=== PATIENT | female | born 1970 | race Hispanic/Latino ===

== ENCOUNTER → 2020-07-17 | Outpatient (CLI) | payer BC | END | disposition home or self-care (01) | LOC: OIH 15:18 | PROVIDERS: ATTEND Internal Medicine | DX: M19.042 Primary osteoarthritis, left hand (principal); M19.072 Primary osteoarthritis, left ankle and foot | CPT/HCPCS: 73630 ==

== ENCOUNTER 2021-03-26 07:37 | Inpatient (IN) | payer BC ==
[~2021-03-26] VITALS: Ht 162.6 cm; Wt 132.1 kg
[2021-03-26 08:17] LABS: BASOPHILS % (AUTO) 0.6 % (0.0-5.0); HEMATOCRIT 41.8 % (36-48); LYMPHOCYTES % (AUTO) 18.3 % (21.0-51.0); MEAN CORPUSCULAR HEMOGLOBIN 30.9 pg (27.0-33.0); MEAN CORPUSCULAR HGB CONC 32.3 g/dL (32.0-36.0); MEAN CORPUSCULAR VOLUME 95.7 fL (79-99); MONOCYTES % (AUTO) 7.4 % (3.0-13.0); NEUTROPHILS % (AUTO) 72.1 % (40.0-77.0); PLATELET COUNT (AUTO) 151 K/uL (130-400); RED BLOOD CELL COUNT(AUTO) 4.37 MIL/uL (4.00-5.50); RED CELL DISTRIBUTION WIDTH 13.2 % (11.0-15.5); WHITE BLOOD COUNT (AUTO) 8.1 K/uL (4.8-10.8)
[2021-03-26 08:29] LABS: CREATININE 1.2 mg/dL (0.5-1.5); POTASSIUM 3.9 mmol/L (3.5-5.1)
[2021-03-26 08:30] LABS: ALBUMIN 3.2 g/dL (3.5-5.0); BILIRUBIN,TOTAL 0.4 mg/dL (0.2-1.0); TOTAL PROTEIN, SERUM 6.7 g/dL (6.0-8.3)
[2021-03-26] MEDS ORDERED: IOHEXOL-350 75 ML VIAL IV ONE (09:03)
[2021-03-26] MEDS ORDERED: 0.9%NACL 1000ML 1,000 ML IV ONE ×2 (09:30→10:45)
[2021-03-26] MEDS ORDERED: HYDRALAZINE 20MG/ML VIAL IV PRN (11:30)
[2021-03-26] MEDS ORDERED: ACETAMINOPHEN 325 MG TAB PO PRN (11:30)
[2021-03-26] MEDS: INSULIN HUMULIN R 100 UNIT/ML 3ML SQ SCH ×5 (11:30→21:46)
[2021-03-26] MEDS: HEPARIN 25,000 UNITS/250ML D5W 250 ML IV SCH (11:33)
[2021-03-26 11:49] LABS: ABG BASE EXCESS -1.1 mmol/L (-2.0-3.0); ABG HCO3 22.6 mmol/L (21.0-28.0); ABG OXYGEN SATURATION 91.3 % (95.0-99.0); ABG PCO2 35 mmHg (32-45)
[2021-03-26 11:53] LABS: INR 1.02 (0.85-1.15); PROTHROMBIN TIME 11.1 SEC (9.6-11.6)
[2021-03-26 11:54] LABS: PARTIAL THROMBOPLASTIN TIME 25.6 SEC (26.3-35.5)
[2021-03-26 19:31] LABS: APPEARANCE,URINE Clear (CLEAR); BILIRUBIN,URINE Negative (NEGATIVE); COLOR,URINE Yellow (YELLOW); GLUCOSE, URINE (UA) TRACE mg/dL (NEGATIVE); KETONES,URINE Negative (NEGATIVE); LEUKOCYTE ESTERASE ,URINE Negative (NEGATIVE); NITRATE,URINE Negative (NEGATIVE); OCCULT BLOOD,URINE Negative (NEGATIVE); PROTEIN,URINE Negative (NEGATIVE); UROBILINOGEN,URINE 0.2 mg/dL (0.2-1.0)
[2021-03-26 19:41] LABS: BACTERIA,URINE Few /HPF (None Seen); MUCUS,URINE Few LPF (None Seen); SQUAMOUS EPITHELIAL CELL,UR Moderate /HPF (0-2)
[2021-03-26 19:47] LABS: INR 1.07 (0.85-1.15); PROTHROMBIN TIME 11.6 SEC (9.6-11.6)
[2021-03-26 19:57] LABS: PARTIAL THROMBOPLASTIN TIME 89.6 SEC (26.3-35.5)
[2021-03-26] MEDS: FAMOTIDINE 20MG VIAL IV SCH (21:44)
[2021-03-26] MEDS: INSULIN GLARGINE 100 UNITS/ML 10 ML VIAL SQ SCH (21:47)
[2021-03-26] MEDS: ACETAMINOPHEN 325 MG TAB PO PRN (22:55)
[2021-03-27 01:56] LABS: INR 1.05 (0.85-1.15); PROTHROMBIN TIME 11.4 SEC (9.6-11.6)
[2021-03-27 01:57] LABS: PARTIAL THROMBOPLASTIN TIME 61.8 SEC (26.3-35.5)
[2021-03-27 03:57] LABS: CHOLESTEROL 200 mg/dL (<200); HDL CHOLESTEROL 57 mg/dL (35-85); LDL DIRECT 111 mg/dL (0-99); TRIGLYCERIDES 191 mg/dL (30-200)
[2021-03-27 04:10] VITALS: BP 162/98
[2021-03-27] MEDS ORDERED: MELO-108 PO (04:24)
[2021-03-27] MEDS ORDERED: SEMA1PEN3 SQ (04:24)
[2021-03-27] MEDS ORDERED: OMEG-12 PO (04:24)
[2021-03-27] MEDS ORDERED: METH2.5T6 PO (04:24)
[2021-03-27] MEDS ORDERED: METF-444 PO (04:24)
[2021-03-27] MEDS ORDERED: FOLIC ACID PO (04:24)
[2021-03-27] MEDS ORDERED: ACET1TAB25 PO (04:24)
[2021-03-27] MEDS ORDERED: MONT-39 PO (04:24)
[2021-03-27] MEDS ORDERED: VITAMIN D3 PO (04:24)
[2021-03-27] MEDS ORDERED: ADAL40PE5 SQ (04:24)
[2021-03-27] MEDS ORDERED: LEVO25TA54 PO (04:24)
[2021-03-27] MEDS ORDERED: LEVOTHYROXINE 25 MCG TABLET ONE (06:45)
[2021-03-27] MEDS: LEVOTHYROXINE 25 MCG TABLET PO SCH (06:46)
[2021-03-27] MEDS: INSULIN HUMULIN R 100 UNIT/ML 3ML SQ SCH ×7 (06:47→20:27)
[2021-03-27 07:53] VITALS: BP 127/80
[2021-03-27 08:12] LABS: INR 1.04 (0.85-1.15); PROTHROMBIN TIME 11.3 SEC (9.6-11.6)
[2021-03-27] MEDS: FISH OIL 1000 MG/CAP PO SCH (08:43)
[2021-03-27] MEDS: MONTELUKAST SODIUM 10 MG TAB PO SCH (08:43)
[2021-03-27] MEDS: METFORMIN HCL 500 MG TABLET PO SCH ×2 (08:43→17:46)
[2021-03-27] MEDS: FOLIC ACID 1 MG TABLET PO SCH (08:43)
[2021-03-27] MEDS: MELOXICAM 7.5 MG TABLET PO SCH (08:44)
[2021-03-27] MEDS: METHOTREXATE SODIUM 2.5 MG TABLET PO SCH (08:44)
[2021-03-27] MEDS: FAMOTIDINE 20MG VIAL IV SCH ×2 (08:44→20:38)
[2021-03-27] MEDS: ACETAMINOPHEN 325 MG TAB PO PRN ×2 (08:59→23:17)
[2021-03-27] MEDS: **HM** OZEMPIC 0.25MG SQ SCH (09:00)
[2021-03-27] MEDS ORDERED: HUMIRA 40 MG SQ SCH (09:00)
[2021-03-27] MEDS: **HM** VIT D3 5000 UNITS PO SCH ×2 (09:00→20:39)
[2021-03-27 10:46] VITALS: BP 118/91
[2021-03-27] MEDS: HEPARIN 25,000 UNITS/250ML D5W 250 ML IV SCH (12:39)
[2021-03-27 13:26] LABS: INR 1.02 (0.85-1.15); PROTHROMBIN TIME 11.1 SEC (9.6-11.6)
[2021-03-27 13:27] LABS: PARTIAL THROMBOPLASTIN TIME 35.6 SEC (26.3-35.5)
[2021-03-27 15:39] VITALS: BP 119/86
[2021-03-27 19:19] VITALS: BP 148/109
[2021-03-27 20:13] LABS: PROTHROMBIN TIME 10.9 SEC (9.6-11.6)
[2021-03-27 20:14] LABS: PARTIAL THROMBOPLASTIN TIME 52.1 SEC (26.3-35.5)
[2021-03-27] MEDS: INSULIN GLARGINE 100 UNITS/ML 10 ML VIAL SQ SCH (20:39)
[2021-03-27 23:34] VITALS: BP 153/99
[2021-03-28 02:05] LABS: INR 1.03 (0.85-1.15); PROTHROMBIN TIME 11.2 SEC (9.6-11.6)
[2021-03-28 02:06] LABS: PARTIAL THROMBOPLASTIN TIME 52.3 SEC (26.3-35.5)
[2021-03-28] MEDS: HEPARIN 25,000 UNITS/250ML D5W 250 ML IV SCH (02:44)
[2021-03-28 04:27] VITALS: BP 160/99
[2021-03-28] MEDS: INSULIN HUMULIN R 100 UNIT/ML 3ML SQ SCH ×7 (05:42→20:16)
[2021-03-28] MEDS: LEVOTHYROXINE 25 MCG TABLET PO SCH (06:25)
[2021-03-28] MEDS: ACETAMINOPHEN 325 MG TAB PO PRN ×2 (06:29→20:10)
[2021-03-28 07:27] VITALS: BP 145/78
[2021-03-28] MEDS: **HM** VIT D3 5000 UNITS PO SCH ×2 (09:00→20:10)
[2021-03-28 10:42] VITALS: BP 138/86
[2021-03-28] MEDS ORDERED: ACETAMINOPHEN WITH CODEINE 1 TAB TAB PO PRN (11:00)
[2021-03-28] MEDS: FOLIC ACID 1 MG TABLET PO SCH (11:09)
[2021-03-28] MEDS: METFORMIN HCL 500 MG TABLET PO SCH ×2 (11:09→16:52)
[2021-03-28] MEDS: FISH OIL 1000 MG/CAP PO SCH (11:09)
[2021-03-28] MEDS: MONTELUKAST SODIUM 10 MG TAB PO SCH (11:09)
[2021-03-28] MEDS: FAMOTIDINE 20MG VIAL IV SCH ×2 (11:09→20:09)
[2021-03-28] MEDS: MELOXICAM 7.5 MG TABLET PO SCH (11:11)
[2021-03-28 11:19] LABS: BASOPHILS % (AUTO) 0.5 % (0.0-5.0); EOSINOPHILS % (AUTO) 2.5 % (0.0-8.0); HEMATOCRIT 38.3 % (36-48); MEAN CORPUSCULAR HEMOGLOBIN 30.7 pg (27.0-33.0); MEAN CORPUSCULAR HGB CONC 32.9 g/dL (32.0-36.0); MEAN CORPUSCULAR VOLUME 93.4 fL (79-99); MONOCYTES % (AUTO) 9.8 % (3.0-13.0); NEUTROPHILS % (AUTO) 55.9 % (40.0-77.0); PLATELET COUNT (AUTO) 157 K/uL (130-400); POTASSIUM 3.4 mmol/L (3.5-5.1); RED CELL DISTRIBUTION WIDTH 13.2 % (11.0-15.5); WHITE BLOOD COUNT (AUTO) 6.3 K/uL (4.8-10.8)
[2021-03-28] MEDS ORDERED: BISACODYL 5 MG TABLET.DR PO PRN (11:30)
[2021-03-28] MEDS: KCL 20 MEQ ERTAB PO SCH (12:30)
[2021-03-28 16:44] VITALS: BP 143/69
[2021-03-28] MEDS: HYDROCODONE/ACETAMINOPHEN 5/325 MG TAB PO PRN ×2 (16:52→22:15)
[2021-03-28 20:04] VITALS: BP 151/80
[2021-03-28] MEDS: INSULIN GLARGINE 100 UNITS/ML 10 ML VIAL SQ SCH (20:18)
[2021-03-28 23:40] VITALS: BP 151/84
[2021-03-29 02:20] LABS: HEMATOCRIT 44.2 % (36-48); MEAN CORPUSCULAR HEMOGLOBIN 30.9 pg (27.0-33.0); MEAN CORPUSCULAR HGB CONC 32.8 g/dL (32.0-36.0); MEAN CORPUSCULAR VOLUME 94.2 fL (79-99); RED BLOOD CELL COUNT(AUTO) 4.69 MIL/uL (4.00-5.50); RED CELL DISTRIBUTION WIDTH 13.1 % (11.0-15.5); WHITE BLOOD COUNT (AUTO) 5.6 K/uL (4.8-10.8)
[2021-03-29] MEDS ORDERED: MORPHINE 2 MG SYG ONE (02:30)
[2021-03-29 02:31] LABS: INR 1.02 (0.85-1.15); PROTHROMBIN TIME 11.1 SEC (9.6-11.6)
[2021-03-29 02:32] LABS: PARTIAL THROMBOPLASTIN TIME 39.4 SEC (26.3-35.5)
[2021-03-29 02:40] LABS: CREATININE 0.9 mg/dL (0.5-1.5); POTASSIUM 3.5 mmol/L (3.5-5.1)
[2021-03-29] MEDS: ONDANSETRON 4MG INJ IV PRN ×2 (02:41→20:58)
[2021-03-29] MEDS: HEPARIN 25,000 UNITS/250ML D5W 250 ML IV SCH ×2 (02:59→10:31)
[2021-03-29] MEDS ORDERED: MORPHINE 2 MG SYG IVP ONE (03:00)
[2021-03-29] MEDS: HYDROCODONE/ACETAMINOPHEN 5/325 MG TAB PO PRN ×4 (03:46→18:40)
[2021-03-29 03:49] VITALS: BP 146/84
[2021-03-29] MEDS: LEVOTHYROXINE 25 MCG TABLET PO SCH (06:00)
[2021-03-29] MEDS: INSULIN HUMULIN R 100 UNIT/ML 3ML SQ SCH ×7 (06:07→20:44)
[2021-03-29] MEDS: **HM** VIT D3 5000 UNITS PO SCH ×2 (08:05→21:00)
[2021-03-29] MEDS: KCL 20 MEQ ERTAB PO SCH (08:05)
[2021-03-29 08:07] VITALS: BP 132/56
[2021-03-29] MEDS: FISH OIL 1000 MG/CAP PO SCH (10:21)
[2021-03-29] MEDS: FOLIC ACID 1 MG TABLET PO SCH (10:21)
[2021-03-29] MEDS: METFORMIN HCL 500 MG TABLET PO SCH ×2 (10:21→18:40)
[2021-03-29] MEDS: FAMOTIDINE 20MG VIAL IV SCH ×2 (10:21→20:45)
[2021-03-29] MEDS: MONTELUKAST SODIUM 10 MG TAB PO SCH (10:21)
[2021-03-29] MEDS: MELOXICAM 7.5 MG TABLET PO SCH (10:22)
[2021-03-29] MEDS ORDERED: MORPHINE 2 MG SYG IVP PRN (10:30)
[2021-03-29 10:47] VITALS: BP 138/91
[2021-03-29] MEDS ORDERED: LIDOCAINE 5% TOPICAL PATCH TP SCH (13:00)
[2021-03-29 16:08] VITALS: BP 152/83
[2021-03-29 19:20] VITALS: BP 129/95
[2021-03-29] MEDS: INSULIN GLARGINE 100 UNITS/ML 10 ML VIAL SQ SCH (20:43)
[2021-03-29 23:42] VITALS: BP 159/97
[2021-03-30] MEDS: HYDROCODONE/ACETAMINOPHEN 5/325 MG TAB PO PRN ×4 (01:19→19:28)
[2021-03-30] MEDS: HEPARIN 25,000 UNITS/250ML D5W 250 ML IV SCH (03:18)
[2021-03-30 03:24] VITALS: BP 144/80
[2021-03-30 06:22] LABS: BASOPHILS % (AUTO) 0.3 % (0.0-5.0); EOSINOPHILS % (AUTO) 2.6 % (0.0-8.0); HEMATOCRIT 38.5 % (36-48); LYMPHOCYTES % (AUTO) 31.7 % (21.0-51.0); MEAN CORPUSCULAR HEMOGLOBIN 30.3 pg (27.0-33.0); MEAN CORPUSCULAR HGB CONC 31.7 g/dL (32.0-36.0); MEAN CORPUSCULAR VOLUME 95.8 fL (79-99); MONOCYTES % (AUTO) 10.6 % (3.0-13.0); NEUTROPHILS % (AUTO) 54.5 % (40.0-77.0); PLATELET COUNT (AUTO) 177 K/uL (130-400); RED BLOOD CELL COUNT(AUTO) 4.02 MIL/uL (4.00-5.50); RED CELL DISTRIBUTION WIDTH 12.6 % (11.0-15.5); WHITE BLOOD COUNT (AUTO) 5.8 K/uL (4.8-10.8)
[2021-03-30 06:38] LABS: CREATININE 0.9 mg/dL (0.5-1.5); POTASSIUM 3.4 mmol/L (3.5-5.1)
[2021-03-30] MEDS: INSULIN HUMULIN R 100 UNIT/ML 3ML SQ SCH ×7 (07:03→21:00)
[2021-03-30] MEDS: LEVOTHYROXINE 25 MCG TABLET PO SCH (07:04)
[2021-03-30] MEDS: METFORMIN HCL 500 MG TABLET PO SCH ×2 (07:05→17:00)
[2021-03-30] MEDS: MELOXICAM 7.5 MG TABLET PO SCH (07:07)
[2021-03-30] MEDS: FOLIC ACID 1 MG TABLET PO SCH (07:07)
[2021-03-30] MEDS: FISH OIL 1000 MG/CAP PO SCH (07:07)
[2021-03-30] MEDS: MONTELUKAST SODIUM 10 MG TAB PO SCH (07:07)
[2021-03-30] MEDS: KCL 20 MEQ ERTAB PO SCH ×2 (07:39→13:07)
[2021-03-30] MEDS: **HM** VIT D3 5000 UNITS PO SCH ×2 (07:39→21:00)
[2021-03-30 07:55] VITALS: BP 140/78
[2021-03-30] MEDS: FAMOTIDINE 20MG VIAL IV SCH ×2 (08:45→21:28)
[2021-03-30 10:58] VITALS: BP 153/83
[2021-03-30 16:35] VITALS: BP 153/73
[2021-03-30] MEDS ORDERED: HEPARIN 5,000 UNIT VIAL ONE (19:25)
[2021-03-30 20:22] VITALS: BP 111/69
[2021-03-30] MEDS: INSULIN GLARGINE 100 UNITS/ML 10 ML VIAL SQ SCH (21:32)
[2021-03-30 23:59] VITALS: BP 144/71
[2021-03-31 00:44] LABS: INR 1.06 (0.85-1.15); PROTHROMBIN TIME 11.5 SEC (9.6-11.6)
[2021-03-31 00:46] LABS: PARTIAL THROMBOPLASTIN TIME 77.4 SEC (26.3-35.5)
[2021-03-31] MEDS: HYDROCODONE/ACETAMINOPHEN 5/325 MG TAB PO PRN ×4 (01:13→17:46)
[2021-03-31 03:58] VITALS: BP 133/71
[2021-03-31 07:01] LABS: CREATININE 1.1 mg/dL (0.5-1.5); POTASSIUM 3.4 mmol/L (3.5-5.1)
[2021-03-31 07:04] LABS: INR 1.05 (0.85-1.15); PROTHROMBIN TIME 11.4 SEC (9.6-11.6)
[2021-03-31 07:05] LABS: PARTIAL THROMBOPLASTIN TIME 58.2 SEC (26.3-35.5)
[2021-03-31 07:30] VITALS: BP 140/69
[2021-03-31] MEDS: INSULIN HUMULIN R 100 UNIT/ML 3ML SQ SCH ×7 (07:30→21:00)
[2021-03-31 08:13] LABS: MAGNESIUM 1.6 mg/dL (1.80-2.40)
[2021-03-31] MEDS: KCL 20 MEQ ERTAB PO SCH ×2 (08:19)
[2021-03-31] MEDS: MELOXICAM 7.5 MG TABLET PO SCH (09:05)
[2021-03-31] MEDS: METFORMIN HCL 500 MG TABLET PO SCH ×2 (09:05→17:44)
[2021-03-31] MEDS: LEVOTHYROXINE 25 MCG TABLET PO SCH (09:05)
[2021-03-31] MEDS: FAMOTIDINE 20MG VIAL IV SCH ×2 (09:05→22:38)
[2021-03-31] MEDS: FOLIC ACID 1 MG TABLET PO SCH (09:05)
[2021-03-31] MEDS: FISH OIL 1000 MG/CAP PO SCH (09:05)
[2021-03-31] MEDS: MONTELUKAST SODIUM 10 MG TAB PO SCH (09:06)
[2021-03-31] MEDS: **HM** VIT D3 5000 UNITS PO SCH ×2 (09:06→21:00)
[2021-03-31 11:00] VITALS: BP 132/69
[2021-03-31] MEDS: HEPARIN 25,000 UNITS/250ML D5W 250 ML IV SCH ×2 (11:01→22:53)
[2021-03-31] MEDS ORDERED: POTASSIUM CHLORIDE 20MEQ/100ML 100 ML IV PRN (13:00)
[2021-03-31] MEDS ORDERED: POTASSIUM CHLORIDE 10% ELIXIR 20 MEQ/15 ML UDCUP PO PRN (13:00)
[2021-03-31] MEDS ORDERED: LIDOCAINE HCL-MPF 1% 2ML VIAL IV PRN (13:00)
[2021-03-31] MEDS ORDERED: MAGNESIUM 2GM PREMIX 50ML 50 ML IV PRN (13:00)
[2021-03-31 13:09] LABS: INR 1.05 (0.85-1.15); PROTHROMBIN TIME 11.4 SEC (9.6-11.6)
[2021-03-31 13:10] LABS: PARTIAL THROMBOPLASTIN TIME 47.8 SEC (26.3-35.5)
[2021-03-31 16:00] VITALS: BP 142/84
[2021-03-31] MEDS: KCL 20 MEQ ERTAB PO PRN ×2 (18:26→22:40)
[2021-03-31 20:19] VITALS: BP 159/71
[2021-03-31] MEDS: INSULIN GLARGINE 100 UNITS/ML 10 ML VIAL SQ SCH (22:42)
[2021-04-01] VITALS (7 sets, daily range): BP systolic 121–140; BP diastolic 58–85
[2021-04-01] MEDS: ONDANSETRON 4MG INJ IV PRN (02:53)
[2021-04-01 03:57] LABS: BASOPHILS % (AUTO) 0.6 % (0.0-5.0); HEMATOCRIT 38.5 % (36-48); LYMPHOCYTES % (AUTO) 32.5 % (21.0-51.0); MEAN CORPUSCULAR HEMOGLOBIN 30.3 pg (27.0-33.0); MEAN CORPUSCULAR HGB CONC 31.7 g/dL (32.0-36.0); MEAN CORPUSCULAR VOLUME 95.8 fL (79-99); MONOCYTES % (AUTO) 9.6 % (3.0-13.0); NEUTROPHILS % (AUTO) 52.9 % (40.0-77.0); PLATELET COUNT (AUTO) 225 K/uL (130-400); RED BLOOD CELL COUNT(AUTO) 4.02 MIL/uL (4.00-5.50); RED CELL DISTRIBUTION WIDTH 12.7 % (11.0-15.5)
[2021-04-01 04:14] LABS: ALBUMIN 2.7 g/dL (3.5-5.0); BILIRUBIN,TOTAL 0.5 mg/dL (0.2-1.0); POTASSIUM 3.7 mmol/L (3.5-5.1); TOTAL PROTEIN, SERUM 5.9 g/dL (6.0-8.3)
[2021-04-01] MEDS: INSULIN HUMULIN R 100 UNIT/ML 3ML SQ SCH ×7 (06:26→21:00)
[2021-04-01] MEDS: LEVOTHYROXINE 25 MCG TABLET PO SCH (06:32)
[2021-04-01] MEDS: HYDROCODONE/ACETAMINOPHEN 5/325 MG TAB PO PRN ×3 (07:20→22:24)
[2021-04-01] MEDS: METFORMIN HCL 500 MG TABLET PO SCH ×2 (08:00→16:18)
[2021-04-01] MEDS: KCL 20 MEQ ERTAB PO SCH ×2 (08:01→11:30)
[2021-04-01] MEDS: MELOXICAM 7.5 MG TABLET PO SCH (09:00)
[2021-04-01] MEDS: FAMOTIDINE 20MG VIAL IV SCH ×2 (09:00→22:19)
[2021-04-01] MEDS: **HM** VIT D3 5000 UNITS PO SCH ×2 (09:00→21:00)
[2021-04-01] MEDS: FOLIC ACID 1 MG TABLET PO SCH (09:00)
[2021-04-01] MEDS: MONTELUKAST SODIUM 10 MG TAB PO SCH (09:00)
[2021-04-01] MEDS: FISH OIL 1000 MG/CAP PO SCH (09:00)
[2021-04-01] MEDS ORDERED: ENOXAPARIN SODIUM 1 MG/KG SQ SCH (09:00)
[2021-04-01] MEDS: ENOXAPARIN SODIUM 30 MG/0.3 ML SQ SCH ×2 (09:05→22:21)
[2021-04-01] MEDS: ENOXAPARIN SODIUM 100 MG/1 ML SQ SCH ×2 (09:06→22:20)
[2021-04-01] MEDS: INSULIN GLARGINE 100 UNITS/ML 10 ML VIAL SQ SCH (22:22)
[2021-04-02] MEDS: HYDROCODONE/ACETAMINOPHEN 5/325 MG TAB PO PRN (03:25)
[2021-04-02 04:30] VITALS: BP 149/79
[2021-04-02] MEDS: INSULIN HUMULIN R 100 UNIT/ML 3ML SQ SCH ×7 (05:46→20:09)
[2021-04-02 07:30] VITALS: BP 141/68
[2021-04-02] MEDS: LEVOTHYROXINE 25 MCG TABLET PO SCH (07:30)
[2021-04-02] MEDS: KCL 20 MEQ ERTAB PO SCH ×2 (07:58→09:10)
[2021-04-02] MEDS: METFORMIN HCL 500 MG TABLET PO SCH ×2 (08:00→17:25)
[2021-04-02] MEDS: FOLIC ACID 1 MG TABLET PO SCH (09:00)
[2021-04-02] MEDS: **HM** VIT D3 5000 UNITS PO SCH ×2 (09:00→20:09)
[2021-04-02] MEDS: FAMOTIDINE 20MG VIAL IV SCH ×2 (09:00→20:09)
[2021-04-02] MEDS: MELOXICAM 7.5 MG TABLET PO SCH (09:00)
[2021-04-02] MEDS: FISH OIL 1000 MG/CAP PO SCH (09:00)
[2021-04-02] MEDS: MONTELUKAST SODIUM 10 MG TAB PO SCH (09:12)
[2021-04-02 10:59] VITALS: BP 139/80
[2021-04-02] MEDS: ACETAMINOPHEN 325 MG TAB PO PRN (12:41)
[2021-04-02 15:48] VITALS: BP 144/80
[2021-04-02 20:05] VITALS: BP 147/85
[2021-04-02] MEDS: INSULIN GLARGINE 100 UNITS/ML 10 ML VIAL SQ SCH (20:17)
[2021-04-02] MEDS ORDERED: APIXABAN 5 MG TABLET PO SCH ×2 (21:00)
[2021-04-02] MEDS: ACETAMINOPHEN WITH CODEINE 1 TAB TAB PO PRN (21:16)
[2021-04-02 23:32] VITALS: BP 155/74
[2021-04-03] VITALS (9 sets, daily range): BP systolic 77–145; BP diastolic 53–93
[2021-04-03] MEDS ORDERED: DiphenhydrAMINE HCL 50 MG/ML VIAL IV ONE (00:15)
[2021-04-03] MEDS ORDERED: DiphenhydrAMINE HCL 50 MG/ML VIAL ONE (00:18)
[2021-04-03] MEDS: LEVOTHYROXINE 25 MCG TABLET PO SCH (06:13)
[2021-04-03] MEDS: INSULIN HUMULIN R 100 UNIT/ML 3ML SQ SCH ×7 (06:14→20:32)
[2021-04-03 07:12] LABS: BASOPHILS % (AUTO) 0.6 % (0.0-5.0); EOSINOPHILS % (AUTO) 3.9 % (0.0-8.0); HEMATOCRIT 41.3 % (36-48); LYMPHOCYTES % (AUTO) 29.2 % (21.0-51.0); MEAN CORPUSCULAR HEMOGLOBIN 30.2 pg (27.0-33.0); MEAN CORPUSCULAR HGB CONC 31.7 g/dL (32.0-36.0); MEAN CORPUSCULAR VOLUME 95.2 fL (79-99); MONOCYTES % (AUTO) 10.2 % (3.0-13.0); NEUTROPHILS % (AUTO) 55.5 % (40.0-77.0); PLATELET COUNT (AUTO) 296 K/uL (130-400); RED BLOOD CELL COUNT(AUTO) 4.34 MIL/uL (4.00-5.50); RED CELL DISTRIBUTION WIDTH 12.6 % (11.0-15.5); WHITE BLOOD COUNT (AUTO) 5.1 K/uL (4.8-10.8)
[2021-04-03 07:22] LABS: CREATININE 1.2 mg/dL (0.5-1.5); POTASSIUM 3.6 mmol/L (3.5-5.1)
[2021-04-03] MEDS: MONTELUKAST SODIUM 10 MG TAB PO SCH (08:10)
[2021-04-03] MEDS: FOLIC ACID 1 MG TABLET PO SCH (08:10)
[2021-04-03] MEDS: FISH OIL 1000 MG/CAP PO SCH (08:10)
[2021-04-03] MEDS: MELOXICAM 7.5 MG TABLET PO SCH (08:11)
[2021-04-03] MEDS: ACETAMINOPHEN WITH CODEINE 1 TAB TAB PO PRN ×2 (08:11→20:32)
[2021-04-03] MEDS: FAMOTIDINE 20MG VIAL IV SCH ×2 (08:11→20:32)
[2021-04-03] MEDS: METFORMIN HCL 500 MG TABLET PO SCH ×2 (08:13→16:51)
[2021-04-03] MEDS: **HM** VIT D3 5000 UNITS PO SCH ×2 (09:00→20:33)
[2021-04-03] MEDS: **HM** OZEMPIC 0.25MG SQ SCH (09:00)
[2021-04-03] MEDS: METHOTREXATE SODIUM 2.5 MG TABLET PO SCH (09:00)
[2021-04-03] MEDS ORDERED: ENOXAPARIN SODIUM 100 MG/1 ML SQ ONE (09:11)
[2021-04-03] MEDS ORDERED: ENOXAPARIN SODIUM 30 MG/0.3 ML SQ ONE (09:11)
[2021-04-03] MEDS: ENOXAPARIN SODIUM 120 MG/0.8ML SQ SCH ×2 (09:12→20:33)
[2021-04-03] MEDS: ACETAMINOPHEN 325 MG TAB PO PRN (16:59)
[2021-04-03] MEDS: INSULIN GLARGINE 100 UNITS/ML 10 ML VIAL SQ SCH (20:32)
[2021-04-04 04:25] VITALS: BP 130/46
[2021-04-04] MEDS ORDERED: DiphenhydrAMINE HCL 50 MG/ML VIAL IV ONE (05:00)
[2021-04-04 05:03] LABS: BASOPHILS % (AUTO) 0.6 % (0.0-5.0); EOSINOPHILS % (AUTO) 3.7 % (0.0-8.0); HEMATOCRIT 39.7 % (36-48); LYMPHOCYTES % (AUTO) 32.1 % (21.0-51.0); MEAN CORPUSCULAR HEMOGLOBIN 30.3 pg (27.0-33.0); MEAN CORPUSCULAR HGB CONC 31.7 g/dL (32.0-36.0); MEAN CORPUSCULAR VOLUME 95.4 fL (79-99); MONOCYTES % (AUTO) 11.4 % (3.0-13.0); NEUTROPHILS % (AUTO) 51.8 % (40.0-77.0); PLATELET COUNT (AUTO) 299 K/uL (130-400); RED BLOOD CELL COUNT(AUTO) 4.16 MIL/uL (4.00-5.50); RED CELL DISTRIBUTION WIDTH 12.7 % (11.0-15.5); WHITE BLOOD COUNT (AUTO) 5.2 K/uL (4.8-10.8)
[2021-04-04] MEDS: ACETAMINOPHEN WITH CODEINE 1 TAB TAB PO PRN ×2 (05:12→18:58)
[2021-04-04] MEDS: LEVOTHYROXINE 25 MCG TABLET PO SCH (05:15)
[2021-04-04 05:21] LABS: CREATININE 1.3 mg/dL (0.5-1.5); POTASSIUM 3.7 mmol/L (3.5-5.1)
[2021-04-04] MEDS: INSULIN HUMULIN R 100 UNIT/ML 3ML SQ SCH ×7 (07:03→20:54)
[2021-04-04 08:32] VITALS: BP 137/75
[2021-04-04] MEDS: **HM** VIT D3 5000 UNITS PO SCH ×2 (08:39→20:54)
[2021-04-04] MEDS: MELOXICAM 7.5 MG TABLET PO SCH (08:39)
[2021-04-04] MEDS: FOLIC ACID 1 MG TABLET PO SCH (08:39)
[2021-04-04] MEDS: METFORMIN HCL 500 MG TABLET PO SCH ×2 (08:39→18:56)
[2021-04-04] MEDS: FISH OIL 1000 MG/CAP PO SCH (08:39)
[2021-04-04] MEDS: MONTELUKAST SODIUM 10 MG TAB PO SCH (08:39)
[2021-04-04] MEDS: FAMOTIDINE 20MG VIAL IV SCH ×2 (08:40→20:55)
[2021-04-04] MEDS ORDERED: RIVAROXABAN 20 MG TABLET PO SCH (09:00)
[2021-04-04 10:40] VITALS: BP 156/66
[2021-04-04 16:36] VITALS: BP 159/95
[2021-04-04 20:00] VITALS: BP 132/73
[2021-04-04] MEDS ORDERED: LORATADINE 10 MG TABLET PO SCH (21:00)
[2021-04-04] MEDS ORDERED: APIXABAN 5 MG TABLET PO SCH (21:00)
[2021-04-04] MEDS: INSULIN GLARGINE 100 UNITS/ML 10 ML VIAL SQ SCH (21:05)
[2021-04-05] VITALS: BP 133/74
[2021-04-05] MEDS: ACETAMINOPHEN WITH CODEINE 1 TAB TAB PO PRN ×2 (02:20→08:33)
[2021-04-05 04:00] VITALS: BP_SYST 124; BP_SYST 147; BP_DIAS 60; BP_DIAS 91
[2021-04-05] MEDS: LORATADINE 10 MG TABLET PO SCH ×2 (06:08→08:34)
[2021-04-05] MEDS: APIXABAN 5 MG TABLET PO SCH ×2 (06:08→08:34)
[2021-04-05] MEDS: LEVOTHYROXINE 25 MCG TABLET PO SCH (06:08)
[2021-04-05] MEDS: **HM** VIT D3 5000 UNITS PO SCH (06:10)
[2021-04-05] MEDS: INSULIN HUMULIN R 100 UNIT/ML 3ML SQ SCH ×3 (06:42→11:30)
[2021-04-05 06:56] LABS: BASOPHILS % (AUTO) 0.5 % (0.0-5.0); EOSINOPHILS % (AUTO) 4.2 % (0.0-8.0); HEMATOCRIT 38.5 % (36-48); LYMPHOCYTES % (AUTO) 38.4 % (21.0-51.0); MEAN CORPUSCULAR HEMOGLOBIN 30.2 pg (27.0-33.0); MEAN CORPUSCULAR HGB CONC 32.7 g/dL (32.0-36.0); MEAN CORPUSCULAR VOLUME 92.3 fL (79-99); MONOCYTES % (AUTO) 12.3 % (3.0-13.0); NEUTROPHILS % (AUTO) 44.4 % (40.0-77.0); PLATELET COUNT (AUTO) 299 K/uL (130-400); RED BLOOD CELL COUNT(AUTO) 4.17 MIL/uL (4.00-5.50); RED CELL DISTRIBUTION WIDTH 12.9 % (11.0-15.5); WHITE BLOOD COUNT (AUTO) 4.2 K/uL (4.8-10.8)
[2021-04-05 07:12] LABS: CREATININE 1.2 mg/dL (0.5-1.5); POTASSIUM 3.8 mmol/L (3.5-5.1)
[2021-04-05] MEDS: FOLIC ACID 1 MG TABLET PO SCH (08:32)
[2021-04-05 08:33] VITALS: BP 142/71
[2021-04-05] MEDS: FAMOTIDINE 20MG VIAL IV SCH (08:33)
[2021-04-05] MEDS: FISH OIL 1000 MG/CAP PO SCH (08:33)
[2021-04-05] MEDS: METFORMIN HCL 500 MG TABLET PO SCH (08:33)
[2021-04-05] MEDS: MONTELUKAST SODIUM 10 MG TAB PO SCH (08:33)
[2021-04-05] MEDS ORDERED: RIVAROXABAN 2.5 MG TABLET PO SCH (09:00)
[2021-04-05 10:52] VITALS: BP 136/91
[2021-04-05] MEDS ORDERED: LORA10TA7 PO (12:10)
[2021-04-05] MEDS ORDERED: PANT40TA PO (13:07)
[2021-04-05] MEDS ORDERED: APIX5TAB PO (13:07)
[2021-04-09] MEDS ORDERED: APIXABAN 5 MG TABLET PO SCH (21:00)
== END 2021-04-05 13:49 | disposition short-term general hospital (02) | DRG 280 ==
LOC: EDH 07:37 → EDHIP 11:18 → 4AH 03-27 03:59
PROVIDERS: ADMIT Internal Medicine; ATTEND Internal Medicine
DX: I82.432 Acute embolism and thrombosis of left popliteal vein (principal); I26.09 Other pulmonary embolism with acute cor pulmonale; I21.A1 Myocardial infarction type 2; J96.01 Acute respiratory failure with hypoxia; R57.8 Other shock; R65.10 Systemic inflammatory response syndrome (SIRS) of non-infectious origin without acute organ dysfunction; Z68.43 Body mass index [BMI] 50.0-59.9, adult; D84.9 Immunodeficiency, unspecified; I82.442 Acute embolism and thrombosis of left tibial vein; M06.9 Rheumatoid arthritis, unspecified; E66.01 Morbid (severe) obesity due to excess calories; E03.9 Hypothyroidism, unspecified; G47.33 Obstructive sleep apnea (adult) (pediatric); Z20.822 Contact with and (suspected) exposure to COVID-19; I45.10 Unspecified right bundle-branch block; G89.29 Other chronic pain; E11.9 Type 2 diabetes mellitus without complications; M47.815 Spondylosis without myelopathy or radiculopathy, thoracolumbar region; Y93.89 Activity, other specified; Y92.89 Other specified places as the place of occurrence of the external cause; Y99.8 Other external cause status; Z79.01 Long term (current) use of anticoagulants; Z86.718 Personal history of other venous thrombosis and embolism; Z79.899 Other long term (current) drug therapy; Z86.711 Personal history of pulmonary embolism; Z88.8 Allergy status to other drugs, medicaments and biological substances
CPT/HCPCS: 36415; 36600; 70450; 71045; 71275; 80048; 80053; 80061; 81001; 81241; 82550; 82803; 82948; 83036; 83605; 83735; 83874; 83880; 84443; 84484; 84703; 85025; 85027; 85210; 85303; 85306; 85610; 85730; 85732; 86038; 86147; 86215; 86235; 87040; 87635; 93005; 93306; 93356; 93970; 93971; 99291; C9803; G0378; J1200; J1644; J1650; J1815; J2405; J3475; J3490; J7030; J8610; Q9967

== ENCOUNTER → 2021-06-03 | Outpatient (CLI) | payer BC ==
[~2021-06-03] MED LIST: ACET1TAB25 PO; ADAL40PE5 SQ; APIX5TAB PO; FOLIC ACID PO; LEVO25TA54 PO; LORA10TA7 PO; MELO-108 PO; METF-444 PO; METH2.5T6 PO; MONT-39 PO; OMEG-12 PO; PANT40TA PO; SEMA1PEN3 SQ; VITAMIN D3 PO
== END | disposition home or self-care (01) ==
LOC: SHCH 12:47
PROVIDERS: ATTEND Internal Medicine Cardiovascular Disease
DX: I82.432 Acute embolism and thrombosis of left popliteal vein (principal); R09.89 Other specified symptoms and signs involving the circulatory and respiratory systems; E11.9 Type 2 diabetes mellitus without complications; Z79.84 Long term (current) use of oral hypoglycemic drugs
CPT/HCPCS: 93925

== ENCOUNTER → 2021-06-06 | Outpatient (CLI) | payer BC ==
[~2021-06-06] MED LIST changes: +REGADENOSON 0.4 MG/5 ML PF SYG IVP SCH
== END | disposition home or self-care (01) ==
LOC: SHCH 08:47
PROVIDERS: ATTEND Internal Medicine Cardiovascular Disease
DX: R06.02 Shortness of breath (principal)
CPT/HCPCS: 78452; 93017; 96374; A9500 ×2; J2785

== ENCOUNTER 2022-04-19 17:35 | Emergency (ER) | payer BC ==
[~2022-04-19] VITALS: Ht 170.2 cm; Wt 94.8 kg
[~2022-04-19 17:35] MED LIST changes: +ACET-2079 PO; -ACET1TAB25 PO; -REGADENOSON 0.4 MG/5 ML PF SYG IVP SCH
[2022-04-19] MEDS ORDERED: ACETAMINOPHEN 500 MG TABLET PO ONE (20:00)
[2022-04-19 21:11] LABS: BASOPHILS % (AUTO) 0.4 % (0.0-5.0); HEMATOCRIT 49.8 % (36-48); LYMPHOCYTES % (AUTO) 13.2 % (21.0-51.0); MEAN CORPUSCULAR HEMOGLOBIN 28.7 pg (27.0-33.0); MEAN CORPUSCULAR HGB CONC 33.7 g/dL (32.0-36.0); NEUTROPHILS % (AUTO) 80.1 % (40.0-77.0); PLATELET COUNT (AUTO) 214 K/uL (130-400); RED BLOOD CELL COUNT(AUTO) 5.86 MIL/uL (4.00-5.50); RED CELL DISTRIBUTION WIDTH 13.1 % (11.0-15.5); WHITE BLOOD COUNT (AUTO) 7.8 K/uL (4.8-10.8)
[2022-04-19 21:18] LABS: APPEARANCE,URINE CLOUDY (CLEAR); BILIRUBIN,URINE NEGATIVE (NEGATIVE); COLOR,URINE YELLOW (YELLOW); GLUCOSE, URINE (UA) NEGATIVE (NEGATIVE); KETONES,URINE 5 mg/dL (NEGATIVE); LEUKOCYTE ESTERASE ,URINE 25 Leu/uL (NEGATIVE); NITRATE,URINE NEGATIVE (NEGATIVE); OCCULT BLOOD,URINE NEGATIVE (NEGATIVE); PH,URINE 5.5 (5.0-8.0); PROTEIN,URINE 50 mg/dL (NEGATIVE); UROBILINOGEN,URINE 0.2 mg/dL (0.2-1.0)
[2022-04-19 21:26] VITALS: BP 127/81
[2022-04-19 21:27] LABS: MUCUS,URINE RARE LPF (None Seen); SQUAMOUS EPITHELIAL CELL,UR MOD /HPF (0-2)
[2022-04-19 21:36] LABS: ALBUMIN 4.6 g/dL (3.5-5.0); CREATININE 1.2 mg/dL (0.5-1.5)
[2022-04-19] MEDS ORDERED: KETOROLAC 30MG VIAL (30MG/ML) ONE (22:11)
[2022-04-19] MEDS ORDERED: KETOROLAC 30MG VIAL (30MG/ML) IVP ONE (22:30)
[2022-04-19] MEDS ORDERED: 0.9%NACL 1000ML 1,000 ML IV ONE (23:00)
[2022-04-20] MEDS ORDERED: CEPH500B PO (00:11)
[2022-04-20] MEDS ORDERED: CEFTRIAXONE 1G VIAL IVP ONE (00:30)
== END 2022-04-20 00:23 | disposition home or self-care (01) ==
LOC: EDH 17:35
DX: N39.0 Urinary tract infection, site not specified (principal); E11.9 Type 2 diabetes mellitus without complications; M19.90 Unspecified osteoarthritis, unspecified site; Z90.89 Acquired absence of other organs; Z90.49 Acquired absence of other specified parts of digestive tract; Z20.822 Contact with and (suspected) exposure to COVID-19; Z79.899 Other long term (current) drug therapy
CPT/HCPCS: 99284; 96374; 87635; 96375; 84484; 80053; 85025; 87088; 87804 ×2; 83605; 81001; 36415; 93005; C9803; J1885; J0696

== ENCOUNTER → 2024-02-12 | Outpatient (CLI) | payer BC ==
[~2024-02-12] MED LIST changes: +CEPH500B PO
== END | disposition home or self-care (01) ==
LOC: RAH 11:36
PROVIDERS: ATTEND Nurse Practitioner Family
DX: Z12.31 Encounter for screening mammogram for malignant neoplasm of breast (principal)
CPT/HCPCS: 77067

== ENCOUNTER → 2024-06-06 | Outpatient (CLI) | payer BC ==
--- NOTE | 2024-06-06 14:22 | HMCIMG ---
MR SHOULDER LEFT WO REASON: M25.512 Pain in left shoulder COMPARISON: None TECHNIQUE: Routine shoulder imaging protocol was performed in the axial, oblique sagittal and oblique coronal plane with T1, proton density, T2 and gradient recalled sequences. FINDINGS: There are AC joint degenerative changes. There is an inferiorly directed osteophyte causing focal indentation on the underlying supraspinatus muscle and tendon. These findings are nonspecific but may result in impingement in the appropriate clinical setting. The rotator cuff tendon itself appears unremarkable. There is no abnormal signal to suggest tendinosis or tendinitis. There is no evidence of tear. Biceps tendon appears unremarkable. Glenohumeral joint space appears preserved. There are no focal osseous lesions. Surrounding muscles and soft tissues appear normal. There is no joint effusion. IMPRESSION: 1. AC joint degenerative changes with an inferiorly directed osteophyte, this can result in impingement in the appropriate clinical setting. 2. Otherwise normal exam including normal appearance of the supraspinatus portion of the rotator cuff tendon.
== END | disposition home or self-care (01) ==
LOC: RAH 12:40
PROVIDERS: ATTEND Nurse Practitioner Family
DX: M19.012 Primary osteoarthritis, left shoulder (principal); M25.712 Osteophyte, left shoulder
CPT/HCPCS: 73221

== ENCOUNTER 2024-12-19 12:58 | Emergency (ER) | payer BC ==
[~2024-12-19] VITALS: Ht 162.6 cm; Wt 98.9 kg
[2024-12-19 13:25] LABS: IMMATURE GRANULOCYTE ABSOLUTE 0.02 K/uL (0-1); NUCLEATED RED BLOOD CELLS 0.0 % (0.0-0.19); PLATELET COUNT (AUTO) 244 K/uL (130-400); RED BLOOD CELL COUNT(AUTO) 4.73 MIL/uL (4.00-5.50); RED CELL DISTRIBUTION WIDTH 12.7 % (11.0-15.5); WHITE BLOOD COUNT (AUTO) 7.2 K/uL (4.8-10.8)
[2024-12-19 13:34] LABS: CREATININE 1.1 mg/dL (0.5-1.0); GLOMERULAR FILTR. RATE CALC 60.0 mL/min (>90); GLUCOSE,RANDOM 103.0 mg/dL (70-105); SODIUM SERUM 141.0 mmol/L (136-145); UREA NITROGEN, BLOOD 24.0 mg/dL (7-18)
[2024-12-19 13:38] LABS: CREATINE KINASE, TOTAL 270.0 U/L (21-232)
--- NOTE | 2024-12-19 14:00 | HMCIMG ---
EXAM: CR Chest, 1 View. CLINICAL HISTORY: cp COMPARISON: None provided. FINDINGS: LUNGS: There is no mass, infiltrate, or acute pulmonary abnormality. PLEURAL SPACES: No evidence of pleural effusion or pneumothorax. MEDIASTINUM: Cardiac size and mediastinal contours within normal limits. BONES: No acute osseous abnormality. IMPRESSION: No acute cardiopulmonary pathology is evident. /Alpha
--- NOTE | 2024-12-19 14:22 | EKG ---
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
[2024-12-19] MEDS ORDERED: DOXY100T2 PO (16:30)
--- NOTE | 2024-12-19 16:31 | ERN ---
General Chief Complaint: Chest Pain Stated Complaint: CP Time Seen by MD: 13:01 Time Seen by Midlevel: 13:01 Source: patient History of Present Illness Initial Comments The patient is a 54-year-old female presenting to the emergency department for evaluation of pain to her anterior neck, jaw, and chest. The pain around her neck is described as a feeling of swollen lymph nodes. She does report having history of rheumatoid arthritis but states this pain is different. The pain started several days ago and has progressively improved however she wanted further evaluation. She denies any trauma to the area. She does not believe her chest pain is coming from her heart. She reports finding a tick a proximally three days ago. Denies any rash or any other symptoms at this time. Allergies: Coded Allergies: No Known Drug Allergies (Verified Allergy, Unknown, 04/03/21) apixaban (Unverified Allergy, Unknown, 04/03/21) Home Meds Active Scripts Cephalexin Monohydrate (Keflex) 500 Mg Cap, 500 MG PO QID for 10 Days, #40 CAP Prov:SOLITARIO MOREL MD 04/20/22 Pantoprazole Sodium (Protonix) 40 Mg Tablet.dr, 40 MG PO DAILY, #30 TAB 0 Refills Prov:[facility] 04/05/21 Apixaban (Eliquis) 5 Mg Tablet, 5 MG PO BID, #70 TAB Prov:SANG NO [facility] 04/05/21 Loratadine (Claritin) 10 Mg Tab, 10 MG PO DAILY, #15 TAB 0 Refills Prov:SANG NO [facility] 04/05/21 Reported Medications [Vitamin D3] No Conflict Check, 5000 UNIT PO BID 03/27/21 Howes-3/Dha/Epa/Fish Oil (Fish Oil 1,000 mg Softgel) 1 Each Capsule, 2 EACH PO DAILY, CAP 03/27/21 [Folic Acid] No Conflict Check, 1 MG PO DAILY 03/27/21 Methotrexate Sodium (Methotrexate) 2.5 Mg Tablet, 10 MG PO QWEEK, TAB 03/27/21 Semaglutide (Ozempic) 1 Mg/0.75 Ml Pen.injctr, 0.25 MG SQ QWEEK 03/27/21 Montelukast Sodium (Montelukast Sodium) 10 Mg Tablet, 10 MG PO DAILY, TAB 03/27/21 Levothyroxine Sodium (Levothyroxine Sodium) 25 Mcg Tablet, 25 MCG PO [id number], TAB 03/27/21 Acetaminophen with Codeine (Acetaminophen-Cod #3 Tablet) 1 Each Tablet, 1 EACH PO [id number] PRN for PAIN LEVEL 4 TO 6, TAB 03/27/21 Meloxicam (Meloxicam) 15 Mg Tablet, 15 MG PO DAILY, TAB 03/27/21 Metformin HCl (Metformin HCl) 500 Mg Tablet, 500 MG PO BID, TAB 03/27/21 Adalimumab (Humira Pen) 40 Mg/0.4 Ml Pen.ij.kit, 40 MG SQ [id number] 03/27/21 Past Medical History Past Medical History: Hypertension, Other Medical History Other: pe, ra Past Surgical History: Appendectomy, Cholecystectomy Social History Social History: Negative, Lives with family, Other ROS Dictation CONSTITUTIONAL: Negative except for HPI HEAD/FACE: Negative except for HPI EENT: Negative except for HPI RESPIRATORY: Negative except for HPI GASTROINTESTINAL/ABDOMINAL: Negative except for HPI GENITOURINARY: Negative except for HPI MUSCULOSKELETAL: Negative except for HPI INTEGUMENTARY: Negative except for HPI NEUROLOGICAL/PSYCH: Negative except for HPI HEMATOLOGIC/LYMPHATIC: Negative except for HPI All Systems Negative, Except as noted above. 13 point review of systems assessed and all negative except for above. Physical Exam Physical Exam Dictation Vital Signs reviewed General Appearance: Alert, oriented x 3, no acute distress, well developed, nourished. Head and Face: non-traumatic. Eyes: PERRL, pink conjunctivas, eyelid no trauma, anterior chamber with arcus senilis. Ears: Pinnas intact and no signs of trauma or erythema ear canals clear and no discharge TM no erythema Nose: No discharge, no bleeding. Oropharynx: Mouth normal, tongue pink, pharynx clear,no erythema, tonsils no exudates, no abscesses noted, mucous membrane moist Neck: Supple, non-tender, no thyromegaly, no masses, no JVD, no bruits Breast:Deferred Chest:No tenderness, no crepitus, no paradoxical movement, no retractions Lungs:Clear, well-ventilated, symmetric, no rales, no wheezing, no rhonchi, no stridor, good breath sounds bilaterally Heart: Regular rate, regular rhythm, no murmur, no gallops Vascular: no peripheral edema, Abdomen: Soft, positive bowel sounds, nondistended, no guarding, nontender, no rebound, no masses no hepatomegaly, no splenomegaly, no Crews's sign, no hernias. Rectal: Deferred Genital: Deferred Neurological: Normal speech, motor function intact, sensory function intact Musculoskeletal: Neck nontender, full range of motion, back nontender, full range of motion, Extremities: nontender, full range of motion Skin: Color pink, dry, no turgor, no rash, no lacerations, no abrasions, no contusions. Lymphatic: Deferred Results Laboratory and Microbiology Lab and Micro Result Laboratory Tests Test 12/19/24 13:17 White Blood Count 7.2 K/uL (4.8-10.8) Red Blood Count 4.73 MIL/uL (4.00-5.50) Hemoglobin 13.7 g/dL (12.0-16.0) Hematocrit 41.9 % (36-48) Mean Corpuscular Volume 88.6 fL (79-99) Mean Corpuscular Hemoglobin 29.0 pg (27.0-33.0) Mean Corpuscular Hemoglobin Concent 32.7 g/dL (32.0-36.0) Red Cell Distribution Width 12.7 % (11.0-15.5) Platelet Count 244 K/uL (130-400) Mean Platelet Volume 9.8 fL (7.5-10.5) Immature Granulocyte % (Auto) 0.3 % (0-1) Neutrophils (%) (Auto) 62.6 % (40.0-77.0) Lymphocytes (%) (Auto) 26.2 % (21.0-51.0) Monocytes (%) (Auto) 7.7 % (3.0-13.0) Eosinophils (%) (Auto) 2.6 % (0.0-8.0) Basophils (%) (Auto) 0.6 % (0.0-5.0) Neutrophils # (Auto) 4.5 K/uL (1.8-7.7) Lymphocytes # (Auto) 1.9 K/uL (1.0-4.8) Monocytes # (Auto) 0.6 K/uL (0.1-1.0) Eosinophils # (Auto) 0.19 K/uL (0.00-0.70) Basophils # (Auto) 0.04 K/uL (0.00-0.20) Absolute Immature Granulocyte (auto 0.02 K/uL (0-1) Nucleated Red Blood Cells 0.0 % (0.0-0.19) Sodium Level 141 mmol/L (136-145) Potassium Level 4.6 mmol/L (3.5-5.1) Chloride Level 104 mmol/L (101-111) Carbon Dioxide Level 32 mmol/L (21-32) Blood Urea Nitrogen 24 mg/dL (7-18) H Creatinine 1.1 mg/dL (0.5-1.0) H Glomerular Filtration Rate Calc 60 mL/min (>90) Random Glucose 103 mg/dL (70-105) Total Calcium 9.0 mg/dL (8.5-10.1) Magnesium Level 2.20 mg/dL (1.80-2.40) Total Creatine Kinase 270 U/L (21-232) #H Troponin I High Sensitivity 5 ng/L (4-50) B-Type Natriuretic Peptide 83 pg/mL (0-100) Labs Reviewed?: Yes MDM MDM: The patient is a 54-year-old female with a past medical history of pulmonary embolisms, and rheumatoid arthritis presenting to the emergency department with nonspecific complaints. She reports pain under her jaw, anterior neck, shoulder, and chest. She states the pain is worse with palpation. She does not believe this is her rheumatological pain. I did a ca rdiac workup on her which is benign. She does report removing a tick from her neck area several days ago in his concern for Lyme disease. On physical examination she is in no acute distress. She has no cervical lymphadenopathy. She has no reproducible chest wall tenderness. Her vital signs are stable. EKG shows no acute ischemic changes. Lab and imaging were discussed with the patient. We will discharged home with a prescription for doxycycline for empiric treatment of Lyme disease. Differential diagnosis: Nerve pain, Lyme disease, acute coronary syndrome There are no social concerns with this patient. Prescription drug management Prescriptions will include: Doxycycline Medical management and examination interpretation discussions were had by me with other qualified healthcare professionals as indicated for the patient's care. ED Course Orders Procedure Category Date Status Time 12 Lead Ekg Tracing- EKG 12/19/24 Complete Technical 13:01 Cbc With Differential LAB 12/19/24 Complete 13:01 Basic Metabolic Panel LAB 12/19/24 Complete 13:01 B-Type Natriuretic LAB 12/19/24 Complete Peptide 13:01 Creatine Kinase, Total LAB 12/19/24 Complete 13:01 Magnesium LAB 12/19/24 Complete 13:01 Troponin I High LAB 12/19/24 Complete Sensitivity 13:01 Chest 1vw RAD 12/19/24 Resulted 13:01 Vital Signs Date Time Temp Pulse Resp B/P (MAP) Pulse Ox O2 Delivery O2 Flow Rate FiO2 12/19/24 13:55 98.4 73 12 137/77 100 Room Air* 0 21 12/19/24 13:03 98.8 76 18 123/84 98 Room Air* 0 21 12/19/24 12:59 98.8 76 16 123/84 98 Room Air 0 DX & DISP Disposition: Discharge Departure Impression: Primary Impression: Non-cardiac chest pain Condition: Stable Scripts Doxycycline Hyclate (Doxycycline Hyclate) 100 Mg Tablet 1 TAB PO BID for 7 Days, #14 TAB 0 Refills Prov: BRITTNEY PHAM 12/19/24 Additional Instructions: Your blood work today is unremarkable. Given that you found a tick recently we will start you on doxycycline for empiric treatment of Lyme disease. Follow up with your primary care doctor in 2-3 days for repeat evaluation. Referrals: SOLIS GOOD (PCP) Time of Disposition: 16:29 I have reviewed the case, and I agree with, Diagnosis and Plan I performed the substantive portion of the visit. I have reviewed and personally made and approve the management plan that is documented in the note by myself or the [place]. I acknowledge for responsibility for the patient's management plan. BRITTNEY PHAM Dec 19, 2024 16:31
[2024-12-19 16:45] VITALS: BP 166/86; PULSE 75; RESP 17; TEMP 98.4; O2SAT 99
--- NOTE | 2024-12-19 16:49 | NUR ---
DC PATIENT WAS DC'D BY BRITTNEY PHAM TODAY, I EXPLAINED TO PATIENT TO FOLLOW UP WITH PCP, PROVIDED INFO BASED ON DIAGNOSIS AND ANSWERED ANY FOLLOW UP QUESTIONS, PATIENT AMBULATED OUT OF ED, NO COMPLICATIONS
== END 2024-12-19 16:44 | disposition home or self-care (01) ==
LOC: EDH 12:58
DX: R07.89 Other chest pain (principal); I10 Essential (primary) hypertension; Z79.01 Long term (current) use of anticoagulants; Z79.1 Long term (current) use of non-steroidal anti-inflammatories (NSAID); Z79.84 Long term (current) use of oral hypoglycemic drugs; Z79.899 Other long term (current) drug therapy
CPT/HCPCS: 36415; 71045; 80048; 82550; 83735; 83880; 84484; 85025; 93005; 99284